=== PATIENT | female | born 1980 | race Caucasian/White ===

== ENCOUNTER → 2019-06-15 | Outpatient (CLI) | payer BC | LOC: LB.LAB 13:24 | PROVIDERS: ATTEND Family Medicine | DX: O22.30 Deep phlebothrombosis in pregnancy, unspecified trimester (principal); Z51.81 Encounter for therapeutic drug level monitoring; I82.409 Acute embolism and thrombosis of unspecified deep veins of unspecified lower extremity; Z79.01 Long term (current) use of anticoagulants | CPT/HCPCS: 85610 ==